=== PATIENT | male | born 1975 | race Caucasian/White ===

== ENCOUNTER 2019-12-16 20:47 | Emergency (ER) | payer SELFPAY ==
[2019-12-16 20:48] VITALS: BP 113/80; PULSE 103; RESP 13; TEMP 37.1; O2SAT 98
[2019-12-16 20:57] VITALS: BP 113/80; PULSE 97; RESP 10; O2SAT 93
--- NOTE | 2019-12-16 21:44 | PC.NURSE ---
ISP at bedside for assessment / questioning of pt.
[2019-12-16 21:45] VITALS: BP 133/101; PULSE 119; RESP 13; O2SAT 100
--- NOTE | 2019-12-16 21:53 | ED.AMS ---
HPI - Altered Mental Status General Chief Complaint: Altered Mental Status Stated Complaint: ams Time Seen by Provider: 12/16/19 20:57 Source: patient Mode of arrival: EMS Limitations: intoxication History of Present Illness HPI narrative: This patient is a 44 year old male who presents via EMS after he was found sleeping in car on side of the road. Patient admitted to using mixture of fentanyl and oxycodone. He reports he has a prescription of oxycodone for his chronic back pain. He also admits to drinking alcohol today. He denies any complaints. He will respond when you speak to him and them fall asleep. Related Data Home Medications Medication Instructions Recorded Confirmed oxycodone 15 mg PO Q4H PRN 12/16/19 Allergies Allergy/AdvReac Type Severity Reaction Status Date / Time No Known Allergies Allergy Verified 12/16/19 20:56 Review of Systems Review of Systems: All systems reviewed & are unremarkable except as noted in HPI and below Constitutional: Constitutional: Denies chills and Denies fever(s) Cardiovascular: Cardiovascular: Denies chest pain Respiratory: Respiratory: Denies cough and Denies dyspnea Gastrointestinal: Gastrointestinal: Denies abdominal pain, Denies heartburn and Denies nausea PMF Past Medical History Medical History (Updated 12/17/19 @ 00:00 by Stacie Vang) Chronic back pain Surgical History Surgical History (Updated 12/16/19 @ 21:54 by Naina George MD) History of back surgery Social History Social History (Updated 12/16/19 @ 21:54 by Naina George MD) Smoking status: Current every day smoker Alcohol intake: current Alcohol use details: occasionally. reports alcohol use today Substance use type: opiates Gender identity (if verbalized by the patient): Male Sexual Orientation (if Verbalized by the Patient): Straight or Heterosexual Exam Const: General: no acute distress Orientation/consciousness: patient oriented x3 HENMT: Head: normocephalic and atraumatic Face and sinus: normal facial exam, sinuses nontender and face symmetric Mouth: Yes Normal oral and palatal mucosa present, Yes lip normal and Yes oropharynx normal Eyes: Pupils: Equal, round and reactive pupils present EOM: EOMs intact bilaterally Neck: Neck: normal visual inspection and no lymphadenopathy Chest: Chest palpation & inspection: normal inspection of the chest Resp: Effort & Inspection: normal respiratory effort and no retractions Auscultation: clear to auscultation bilaterally Cardio: Rate: regular rate Rhythm: regular rhythm Heart sounds: no murmurs GI: GI Palp: Yes Soft to palpation, No Tenderness to palpation present (GI), No Guarding due to palpation present (GI) and No Rigid due to palpation Skin: General skin exam: normal color Neuro: General: patient oriented x3 and moves all extremities Extrem: General: no pedal edema Course Reevaluation(s) Reevaluation #1: Patient is alert and oriented x 3. He has steady gait. He states he has a ride coming and he is ready to go home. Date: 12/16/19 Time: 22:48 Vital Signs Vital signs: Vital Signs Temperature 98.8 F 12/16/19 20:48 Pulse Rate 103 H 12/16/19 20:48 Respiratory Rate 13 12/16/19 20:48 Blood Pressure 113/80 12/16/19 20:48 Pulse Oximetry 98 12/16/19 20:48 Temperature 98.8 F 12/16/19 20:48 Pulse Rate 70 12/16/19 23:00 Respiratory Rate 16 12/16/19 23:00 Blood Pressure 116/70 12/16/19 23:00 Pulse Oximetry 100 12/16/19 23:00 MDM - Altered Mental Status ECG Data EKG #1: ECG completion date: 12/16/19 ECG completion time: 20:58 EKG Interpretation: normal rate (99), sinus rhythm, no ST changes and NL axis Discharge Plan Discharge Clinical Impression: Accidental fentanyl overdose Patient Disposition: Home, Self-Care Condition: Stable Instructions: Antibiotic Form, Narcotic Safety (ED), Prescription Narcotic Ove
--- NOTE | 2019-12-16 22:09 | PC.NURSE ---
pt currently refusing narcan. Pt is A+O X 4 with ISP at bedside.
[2019-12-16 22:10] VITALS: BP 165/88; PULSE 106; RESP 12; O2SAT 98
[2019-12-16 23:00] VITALS: BP 116/70; PULSE 70; RESP 16; O2SAT 100
== END 2019-12-16 23:01 | disposition home or self-care (01) ==
PROVIDERS: Emergency Provider General Practice
DX: T40.4X1A Poisoning by other synthetic narcotics, accidental (unintentional), initial encounter (principal); G89.29 Other chronic pain
CPT/HCPCS: 99283; J2310